=== PATIENT | male | born 1945 | race Caucasian/White ===

== ENCOUNTER → 2019-06-19 | Outpatient (CLI) | payer MEDICARE ==
--- NOTE | 2019-06-19 07:56 | US ---
EXAMINATION TYPE: [place]are screen for AAA DATE OF EXAM: 06/19/2019 COMPARISON: NONE CLINICAL HISTORY: Z13.6 Screening for AAA. Medicare screening EXAM MEASUREMENTS: Abdominal Aorta: Proximal: 2.8 by 2.7 cm Mid: 2.1 by 1.9 cm Distal: 1.6 by 1.6 cm Bifurcation: Not visualized due to overlying bowel gas. Patient of large body habitus. Some portions of aorta obscured by overlying bowel. Suboptimal study due to body habitus and overlying bowel gas, visualized portions of aorta showed no aneurysmal change but aorta is not seen in its entirety through the bifurcation. IMPRESSION: No ultrasound evidence for AAA.
== END | disposition home or self-care (01) ==
LOC: RADUSWWP 07:02
PROVIDERS: ATTEND Internal Medicine
DX: Z13.6 Encounter for screening for cardiovascular disorders (principal)
CPT/HCPCS: 76706